=== PATIENT | male | born 1960 | race African-American/Black ===

== ENCOUNTER 2020-08-22 20:42 | Emergency (ER) | payer MEDICAID ==
[~2020-08-22] VITALS: Ht 180.3 cm; Wt 75.7 kg
[2020-08-22 20:50] VITALS: BP_SYST 124
[2020-08-22] MEDS ORDERED: MORPHINE 4 MG/ML INJ. SYRINGE IM ONE (23:00)
[2020-08-23 00:50] VITALS: BP_SYST 112
== END 2020-08-23 00:50 | disposition home or self-care (01) ==
LOC: SED 20:42
DX: S82.391A Other fracture of lower end of right tibia, initial encounter for closed fracture (principal); W07.XXXA Fall from chair, initial encounter; Y93.89 Activity, other specified; Y92.89 Other specified places as the place of occurrence of the external cause; Y99.8 Other external cause status
CPT/HCPCS: 73590-TC; 93971; 96372; 99284